=== PATIENT | male | born 1935 | race Caucasian/White ===

== ENCOUNTER 2017-08-14 10:03 | Inpatient (IN) | payer MEDICARE, BC ==
[~2017-08-14] VITALS: Ht 180.3 cm; Wt 92.7 kg
[~2017-08-14 10:03] MED LIST: ACTOS 15MG TAB15 MG PO; ASPIR-LOW81 MG PO; ASPIRIN E.C. 8181 MG PO; AVAPRO TAB150 MG/TAB PO; AVAPRO300 M1 PO; CELEXA10 MG PO; FLOMAX0.4 MG PO; GLUCOTROL10 MG PO; GLYBURIDE MICRON3 MG PO; I-CAPS PO; IBUPROFEN200 M1 PO; INDERAL80 MG PO; LIPITOR 10MG10 MG PO; PRILOSEC 20MG20 MG PO; TERAZOSIN HCL; TERAZOSIN HCL PO; VESICARE5 MG PO; VICTOZA6 MG/ML SC; ZOCOR 40MG40 MG PO
[2017-08-14] MEDS ORDERED: LANTUS SOLOS100 U/ML SQ (11:16)
[2017-08-14] MEDS ORDERED: GLUCOPHAGE500 MG/TAB PO (11:17)
[2017-08-14] MEDS ORDERED: MYRBETR50MG PO (11:17)
[2017-08-14 11:28] LABS: ALBUMIN 4.1 gm/dL (3.5-5.0); BILIRUBIN,TOTAL 0.7 mg/dL (0.0-1.0); CALCIUM 8.8 mg/dL (8.4-10.2); CREATININE, serum 2.02 mg/dL (0.66-1.25); TOTAL PROTEIN 7.2 gm/dL (6.4-8.2)
[2017-08-14 11:35] LABS: BASO # 0.1 (0.0-0.2); BASO % 0.4 % (0.0-2.0); EOS % 0.1 % (0-4.0); GRAN % 84.3 % (42.2-75.2); LYMPH # 0.8 (1.2-3.4); LYMPH % 5.9 % (20.0-51.0); MEAN CELL VOLUME 93 fl (80.0-100.0); MEAN CORPUSCULAR HGB CONC 34 g/dl (33.0-37.0); MEAN PLATELET VOLUME 9.8 fl (7.4-10.4); MONO # 1.2 (0.1-0.6); MONO % 8.2 % (1.7-9.3); PLATELET COUNT 280 K/mm3 (130-400); RED BLOOD COUNT 3.75 M/mm3 (4.20-5.60)
[2017-08-14 11:37] LABS: HEMATOCRIT 34.7 % (42.0-52.0); HEMOGLOBIN 11.8 g/dl (13.5-18.0); MEAN CORPUSCULAR HEMOGLOBIN 31 pg (27.0-31.0)
[2017-08-14] MEDS ORDERED: TESSALON PERLE200 MG PO (12:17)
[2017-08-14] MEDS ORDERED: INDERAL80 MG PO (14:01)
[2017-08-14 15:00] VITALS: BP 127/75; PULSE 63; TEMP 97.9
[2017-08-14] MEDS ORDERED: PREDNISONE20 MG PO (15:23)
[2017-08-14] MEDS ORDERED: VENTOLIN0.09 MG IH (15:24)
[2017-08-14 19:54] VITALS: BP 146/74; PULSE 69; TEMP 98.3
[2017-08-15] VITALS (7 sets, daily range): BP systolic 124–191; BP diastolic 54–80; PULSE 61–92; TEMP 97.8–98.8
[2017-08-15 07:16] LABS: MEAN CELL VOLUME 93 fl (80.0-100.0); MEAN CORPUSCULAR HGB CONC 33 g/dl (33.0-37.0); MEAN PLATELET VOLUME 9.7 fl (7.4-10.4); PLATELET COUNT 233 K/mm3 (130-400); REDCELL DISTRIBUTION WIDTH-CV 13.2 % (11.5-14.5)
[2017-08-15 07:27] LABS: CALCIUM 8.1 mg/dL (8.4-10.2); CREATININE, serum 1.74 mg/dL (0.66-1.25); POTASSIUM 3.8 mmol/L (3.4-5.0)
[2017-08-15 07:29] LABS: HEMATOCRIT 30.8 % (42.0-52.0); HEMOGLOBIN 10.1 g/dl (13.5-18.0); MEAN CORPUSCULAR HEMOGLOBIN 31 pg (27.0-31.0)
[2017-08-15 08:44] LABS: BAND 2 % (0-10); EOSINOPHIL 5 % (0-4); LYMPHOCYTE 24 % (20.0-51.0); METAMYELOCYTE 1 % (0-0); NEUTROPHILS 59 % (42.0-75.2)
[2017-08-15 08:45] LABS: HYPOCHROMIA 1+; PLATELET ESTIMATE NORMAL (NORMAL)
[2017-08-16 00:33] VITALS: BP 131/68; PULSE 81; TEMP 98.4
[2017-08-16 04:20] VITALS: BP 135/74; PULSE 79; TEMP 98.5
[2017-08-16 07:44] LABS: MEAN CELL VOLUME 91 fl (80.0-100.0); MEAN CORPUSCULAR HGB CONC 33 g/dl (33.0-37.0); MEAN PLATELET VOLUME 9.8 fl (7.4-10.4); PLATELET COUNT 305 K/mm3 (130-400); RED BLOOD COUNT 3.83 M/mm3 (4.20-5.60); REDCELL DISTRIBUTION WIDTH-CV 13.2 % (11.5-14.5)
[2017-08-16 07:45] VITALS: BP 156/78; PULSE 86; TEMP 98
[2017-08-16 07:48] LABS: HEMOGLOBIN 11.7 g/dl (13.5-18.0); MEAN CORPUSCULAR HEMOGLOBIN 31 pg (27.0-31.0)
[2017-08-16 07:58] LABS: CALCIUM 8.8 mg/dL (8.4-10.2); CREATININE, serum 2.07 mg/dL (0.66-1.25); MAGNESIUM 2.2 mg/dL (1.6-2.3); PHOSPHOROUS 4.9 mg/dL (2.5-4.5); POTASSIUM 3.7 mmol/L (3.4-5.0)
[2017-08-16 09:36] LABS: BAND 4 % (0-10); LYMPHOCYTE 24 % (20.0-51.0); METAMYELOCYTE 1 % (0-0); NEUTROPHILS 62 % (42.0-75.2); PLATELET ESTIMATE NORMAL (NORMAL)
[2017-08-16 11:23] VITALS: BP 134/72; PULSE 70; TEMP 97.4
[2017-08-16 16:00] VITALS: BP 158/69; BP 174/111; PULSE 67; TEMP 97.4
[2017-08-16 19:55] VITALS: BP 173/86; PULSE 69; TEMP 98
[2017-08-17 00:20] VITALS: BP 132/55; PULSE 65; TEMP 97.9
[2017-08-17 03:24] VITALS: BP 130/67; PULSE 70; TEMP 98.1
[2017-08-17 06:33] LABS: MEAN CELL VOLUME 90 fl (80.0-100.0); MEAN CORPUSCULAR HGB CONC 34 g/dl (33.0-37.0); MEAN PLATELET VOLUME 9.5 fl (7.4-10.4); PLATELET COUNT 309 K/mm3 (130-400); RED BLOOD COUNT 3.66 M/mm3 (4.20-5.60); REDCELL DISTRIBUTION WIDTH-CV 13.1 % (11.5-14.5)
[2017-08-17 06:37] LABS: CALCIUM 8.5 mg/dL (8.4-10.2); CREATININE, serum 2.13 mg/dL (0.66-1.25); MAGNESIUM 2.4 mg/dL (1.6-2.3); POTASSIUM 4.1 mmol/L (3.4-5.0)
[2017-08-17 06:52] LABS: HEMATOCRIT 33.1 % (42.0-52.0); HEMOGLOBIN 11.3 g/dl (13.5-18.0); MEAN CORPUSCULAR HEMOGLOBIN 31 pg (27.0-31.0)
[2017-08-17 08:28] LABS: BAND 6 % (0-10); LYMPHOCYTE 24 % (20.0-51.0); NEUTROPHILS 65 % (42.0-75.2); PLATELET ESTIMATE NORMAL (NORMAL)
[2017-08-17 08:29] VITALS: BP 114/74; PULSE 84; TEMP 97.9
[2017-08-17 11:41] VITALS: BP 139/73; PULSE 71; TEMP 97.7
[2017-08-17 16:26] VITALS: BP 111/71; PULSE 65; TEMP 97.6
[2017-08-17 20:15] VITALS: BP 130/59; PULSE 59; TEMP 98.4
[2017-08-18 00:10] VITALS: BP 134/76; PULSE 65; TEMP 98.5
[2017-08-18 03:30] VITALS: BP 128/68; PULSE 63; TEMP 98.7
[2017-08-18 07:56] LABS: BASO # 0.1 (0.0-0.2); BASO % 0.9 % (0.0-2.0); EOS # 0.4 (0.0-0.7); EOS % 2.5 % (0-4.0); GRAN # 8.5 (1.4-6.5); GRAN % 56.6 % (42.2-75.2); HEMATOCRIT 37.3 % (42.0-52.0); HEMOGLOBIN 12.4 g/dl (13.5-18.0); LYMPH # 4.3 (1.2-3.4); LYMPH % 28.6 % (20.0-51.0); MEAN CELL VOLUME 92 fl (80.0-100.0); MEAN CORPUSCULAR HEMOGLOBIN 31 pg (27.0-31.0); MEAN CORPUSCULAR HGB CONC 33 g/dl (33.0-37.0); MEAN PLATELET VOLUME 9.4 fl (7.4-10.4); MONO # 1.2 (0.1-0.6); MONO % 7.9 % (1.7-9.3); PLATELET COUNT 366 K/mm3 (130-400); RED BLOOD COUNT 4.04 M/mm3 (4.20-5.60); REDCELL DISTRIBUTION WIDTH-CV 13.4 % (11.5-14.5)
[2017-08-18 08:22] LABS: CALCIUM 8.3 mg/dL (8.4-10.2); CREATININE, serum 2.54 mg/dL (0.66-1.25); POTASSIUM 4.6 mmol/L (3.4-5.0)
[2017-08-18 09:13] VITALS: BP 119/49; PULSE 67; TEMP 97.5
[2017-08-18 11:07] VITALS: BP 148/80; PULSE 58; TEMP 98
[2017-08-18 11:32] LABS: COLLECTION METHOD CLEAN CATCH
[2017-08-18 11:43] LABS: PH 5 (5-8); SQUAMOUS EPITHELIAL 0-2 /hpf; URINE APPEARANCE Clear; URINE BACTERIA None Seen /hpf; URINE BILIRUBIN Negative (NEGATIVE); URINE BLOOD 1+ (NEGATIVE); URINE COLOR Yellow; URINE GLUCOSE 3+ (NEGATIVE); URINE KETONE Negative (NEGATIVE); URINE LEUKOCYTE ESTERASE Negative (NEGATIVE); URINE NITRATE Negative (NEGATIVE); URINE PROTEIN(semi-quant) Negative (NEGATIVE); URINE RBC 0-2 /hpf; URINE UROBILINOGEN Negative (NEGATIVE)
[2017-08-18 11:50] LABS: CREATININE, serum 2.52 mg/dL (0.66-1.25)
[2017-08-18 12:07] LABS: FRACTIONAL EXCRETION OF NA+ 1.7 %
[2017-08-18 16:26] VITALS: BP 142/56; PULSE 63; TEMP 97.9
[2017-08-18 20:09] VITALS: BP 137/57; PULSE 65; TEMP 97.4
[2017-08-19 00:37] VITALS: BP 141/59; PULSE 69; TEMP 97.5
[2017-08-19 04:47] VITALS: BP 149/58; PULSE 75; TEMP 97.3
[2017-08-19 07:50] VITALS: BP 125/63; PULSE 74; TEMP 977
[2017-08-19 09:14] LABS: HEMATOCRIT 37.7 % (42.0-52.0); HEMOGLOBIN 12.5 g/dl (13.5-18.0); MEAN CELL VOLUME 94 fl (80.0-100.0); MEAN CORPUSCULAR HEMOGLOBIN 31 pg (27.0-31.0); MEAN CORPUSCULAR HGB CONC 33 g/dl (33.0-37.0); MEAN PLATELET VOLUME 9.6 fl (7.4-10.4); PLATELET COUNT 386 K/mm3 (130-400); RED BLOOD COUNT 4.02 M/mm3 (4.20-5.60); REDCELL DISTRIBUTION WIDTH-CV 13.4 % (11.5-14.5)
[2017-08-19 09:18] LABS: CALCIUM 8.1 mg/dL (8.4-10.2); CREATININE, serum 2.44 mg/dL (0.66-1.25)
[2017-08-19 09:32] LABS: BAND 3 % (0-10); EOSINOPHIL 2 % (0-4); LYMPHOCYTE 26 % (20.0-51.0); NEUTROPHILS 61 % (42.0-75.2); PLATELET ESTIMATE NORMAL (NORMAL)
[2017-08-19 11:11] VITALS: BP 143/62; PULSE 62; TEMP 98.3
[2017-08-19] MEDS ORDERED: NOVOLOG FLEX100 U/ML SQ (11:44)
[2017-08-19] MEDS ORDERED: LANTUS SOLOS100 U/ML SQ (11:44)
== END 2017-08-19 13:40 | disposition home or self-care (01) | DRG 194 ==
LOC: COL.ER 10:03 → MEDICAL 13:24
PROVIDERS: Emergency Medicine; Internal Medicine; Physician Assistant
DX: J10.1 Influenza due to other identified influenza virus with other respiratory manifestations (principal); N17.9 Acute kidney failure, unspecified; E87.1 Hypo-osmolality and hyponatremia; I12.9 Hypertensive chronic kidney disease with stage 1 through stage 4 chronic kidney disease, or unspecified chronic kidney disease; E11.22 Type 2 diabetes mellitus with diabetic chronic kidney disease; N18.9 Chronic kidney disease, unspecified; I69.312 Visuospatial deficit and spatial neglect following cerebral infarction; Z79.4 Long term (current) use of insulin; Z87.891 Personal history of nicotine dependence; D64.9 Anemia, unspecified
CPT/HCPCS: 99222-AI; 99232-AI; 99233-AI; G0378; G8978-GP; G8979-GP; J0360; J0696; J1644; J1815; J1940; J3420; J7030; J7512

== ENCOUNTER → 2017-12-24 | Outpatient (REF) ==
[~2017-12-24] MED LIST changes: +GLUCOPHAGE500 MG/TAB PO; +LANTUS SOLOS100 U/ML SQ; +MYRBETR50MG PO; +NOVOLOG FLEX100 U/ML SQ; +PREDNISONE20 MG PO; +TESSALON PERLE200 MG PO; +VENTOLIN0.09 MG IH
== END ==
LOC: ZLAB.WCH 14:18
DX: Z01.89 Encounter for other specified special examinations (principal)
CPT/HCPCS: G0103

== ENCOUNTER 2018-06-01 01:40 | Emergency (ER) | payer MEDICARE, BC ==
[~2018-06-01] VITALS: Ht 180.3 cm; Wt 77.4 kg
[2018-06-01 01:49] VITALS: TEMP 98
[2018-06-01 02:16] LABS: BASO # 0.1 (0.0-0.2); BASO % 0.7 % (0.0-2.0); EOS # 0.7 (0.0-0.7); EOS % 8.2 % (0-4.0); GRAN # 4.9 (1.4-6.5); GRAN % 54.5 % (42.2-75.2); HEMOGLOBIN 12.3 g/dl (13.5-18.0); LYMPH # 2.4 (1.2-3.4); LYMPH % 26.4 % (20.0-51.0); MEAN CELL VOLUME 94 fl (80.0-100.0); MEAN CORPUSCULAR HEMOGLOBIN 31 pg (27.0-31.0); MEAN CORPUSCULAR HGB CONC 33 g/dl (33.0-37.0); MEAN PLATELET VOLUME 9.8 fl (7.4-10.4); MONO # 0.9 (0.1-0.6); MONO % 9.6 % (1.7-9.3); PLATELET COUNT 232 K/mm3 (130-400); RED BLOOD COUNT 3.92 M/mm3 (4.20-5.60); REDCELL DISTRIBUTION WIDTH-CV 13.6 % (11.5-14.5)
[2018-06-01 02:18] LABS: HEMATOCRIT 36.8 % (42.0-52.0)
[2018-06-01 02:27] LABS: ALANINE AMINOTRANSFERASE 30 U/L (21-72); ALBUMIN 3.7 gm/dL (3.5-5.0); ALKALINE PHOSPHATASE 60 U/L (50-136); ANION GAP 7 mmol/L (7-16); AST,SGOT 17 U/L (15-37); BILIRUBIN,TOTAL 0.5 mg/dL (0.0-1.0); BLOOD UREA NITROGEN 32 mg/dL (9-20); CALCIUM 8.5 mg/dL (8.4-10.2); CARBON DIOXIDE 21 mmol/L (22-30); CHLORIDE 112 mmol/L (98-107); CREATININE, serum 2.13 mg/dL (0.66-1.25); GLUCOSE 314 mg/dL (74-106); POTASSIUM 4.5 mmol/L (3.4-5.0); SODIUM 140 mmol/L (137-145); TOTAL PROTEIN 6.6 gm/dL (6.4-8.2)
[2018-06-01 02:40] LABS: TROPONIN-I < 0.012 ng/mL (0.000-0.034)
[2018-06-01] MEDS ORDERED: PREDNISONE20 MG PO (03:07)
[2018-06-01] MEDS ORDERED: ZITHROMAX 250M250 MG PO (03:07)
[2018-06-01 03:42] VITALS: BP 185/79; PULSE 56
== END 2018-06-01 03:49 | disposition home or self-care (01) ==
LOC: COL.ER 01:40
PROVIDERS: Emergency Medicine
DX: J20.9 Acute bronchitis, unspecified (principal); J45.909 Unspecified asthma, uncomplicated; K21.9 Gastro-esophageal reflux disease without esophagitis; E11.22 Type 2 diabetes mellitus with diabetic chronic kidney disease; N18.9 Chronic kidney disease, unspecified; E78.5 Hyperlipidemia, unspecified; F32.9 Major depressive disorder, single episode, unspecified; Z86.73 Personal history of transient ischemic attack (TIA), and cerebral infarction without residual deficits; Z87.891 Personal history of nicotine dependence; Z79.4 Long term (current) use of insulin
CPT/HCPCS: J7512

== ENCOUNTER → 2018-07-12 | Outpatient (REF) ==
[~2018-07-12] MED LIST changes: +ZITHROMAX 250M250 MG PO
== END ==
LOC: ZLAB.WCH 19:20
DX: Z01.89 Encounter for other specified special examinations (principal)
CPT/HCPCS: G0103

== ENCOUNTER 2020-01-20 07:54 | Day surgery (SDC) | payer MEDICARE, BC ==
[2020-01-20] VITALS (10 sets, daily range): BP systolic 140–189; BP diastolic 70–88; PULSE 53–87
[~2020-01-20] VITALS: Ht 180.3 cm; Wt 89.0 kg
[2020-01-20 09:06] LABS: HEMOGLOBIN 11.1 g/dl (13.5-18.0); MEAN CELL VOLUME 95 fl (80.0-100.0); MEAN CORPUSCULAR HEMOGLOBIN 31 pg (27.0-31.0); MEAN CORPUSCULAR HGB CONC 33 g/dl (33.0-37.0); MEAN PLATELET VOLUME 9.5 fl (7.4-10.4); PLATELET COUNT 261 K/mm3 (130-400); RED BLOOD COUNT 3.54 M/mm3 (4.20-5.60)
[2020-01-20 09:10] LABS: HEMATOCRIT 33.5 % (42.0-52.0)
[2020-01-20 09:15] LABS: CALCIUM 8.7 mg/dL (8.4-10.2); CREATININE, serum 2.43 (0.66-1.25); POTASSIUM 4.5 mmol/L (3.4-5.0)
[2020-01-20] MEDS ORDERED: LANTUS SOLOS100 U/ML SQ (09:18)
[2020-01-20] MEDS ORDERED: COZAAR 25MG25 MG/TAB PO (09:20)
[2020-01-20 09:21] LABS: PROTHROMBIN TIME 10.9 SECONDS (9.7-12.8)
[2020-01-20] MEDS ORDERED: ASPIRIN E.C. 8181 MG PO (09:21)
[2020-01-20] MEDS ORDERED: CALCIUM 600-D 61 TAB PO (09:21)
[2020-01-20] MEDS ORDERED: ICAPS TABLET1 EACH PO (09:23)
== END 2020-01-20 13:15 | disposition home or self-care (01) ==
LOC: COL.CAR 07:54
PROVIDERS: Internal Medicine Cardiovascular Disease
DX: R06.02 Shortness of breath (principal); I25.10 Atherosclerotic heart disease of native coronary artery without angina pectoris; E78.2 Mixed hyperlipidemia; I10 Essential (primary) hypertension; E11.9 Type 2 diabetes mellitus without complications; G25.0 Essential tremor; Z79.4 Long term (current) use of insulin; Z79.899 Other long term (current) drug therapy; Z87.891 Personal history of nicotine dependence; Z82.3 Family history of stroke; Z79.82 Long term (current) use of aspirin; Z80.52 Family history of malignant neoplasm of bladder; Z96.653 Presence of artificial knee joint, bilateral; Z96.611 Presence of right artificial shoulder joint; Z85.46 Personal history of malignant neoplasm of prostate; Z90.79 Acquired absence of other genital organ(s)
CPT/HCPCS: C1769; J1644; J2250; J3010

== ENCOUNTER → 2020-07-18 | Outpatient (CLI) | payer MEDICARE, BC ==
[~2020-07-18] MED LIST changes: +00186-0370-20 IH; +CALCIUM 600-D 61 TAB PO; +COZAAR 25MG25 MG/TAB PO; +ICAPS TABLET1 EACH PO; +NORVASC 5MG5 MG/TAB PO
== END ==
LOC: COL.RAD 13:19
DX: R10.32 Left lower quadrant pain (principal)